=== PATIENT | female | born 1975 | race Caucasian/White ===

== ENCOUNTER 2023-06-21 12:09 | Day surgery (SDC) | payer MEDICARE ==
[2023-06-21] MEDS ORDERED: Decadron 4 MG INJ IV ONE (12:10)
[2023-06-21] MEDS ORDERED: Sodium Chloride 0.9(Preservative Free) 10 ML IJ ONE (12:10)
[2023-06-21 13:24] LABS: HCG URINE TEST NEGATIVE (NEGATIVE)
[2023-06-21] MEDS ORDERED: Lactated Ringers 1,000 ML IV ONE (14:42)
[2023-06-21] MEDS ORDERED: DIPRIVAN 200 MG/20 ML IV ONE (15:11)
[2023-06-21] MEDS ORDERED: Versed 2 MG/2 ML Injection ONE (15:12)
--- NOTE | 2023-06-21 16:33 | XRAY ---
Indication: Right L4-S1 transforaminal SHI. Intraoperative fluoroscopy provided for 57 seconds. 6 digital spot image submitted for interpretation demonstrates posterior needle tips projecting over the expected right L4 and L5 nerve roots. Small amount of contrast injected for needle tip placement. Correlate with intraoperative findings/report.
--- NOTE | 2023-06-21 16:40 | XRAY ---
57 seconds of fluoroscopy was used in surgery for a right L4-S1 transforaminal SHI.
== END 2023-06-21 15:45 | disposition home or self-care (01) ==
LOC: SDC-PAIN 12:09
PROVIDERS: ATTEND Psychiatry & Neurology Pain Medicine
DX: M54.16 Radiculopathy, lumbar region (principal)
CPT/HCPCS: 64483; 64484; 72100; 77003; 81025; J1100; J2250; J2704; Q9966

== ENCOUNTER 2024-04-17 11:51 | Day surgery (SDC) | payer MEDICARE ==
[2024-04-17] MEDS ORDERED: Decadron 4 MG INJ IV ONE (11:52)
[2024-04-17] MEDS ORDERED: Sodium Chloride 0.9(Preservative Free) 10 ML IJ ONE (11:52)
[2024-04-17 12:25] LABS: HCG URINE TEST NEGATIVE (NEGATIVE)
[2024-04-17] MEDS ORDERED: DIPRIVAN 200 MG/20 ML IV ONE (13:56)
[2024-04-17] MEDS ORDERED: Xylocaine-Mpf 2% 5 Ml Vial ONE (13:58)
--- NOTE | 2024-04-17 14:54 | XRAY ---
Indication: Left L3-L5 transforaminal SHI. Intraoperative fluoroscopy provided for 33 seconds. 3 digital spot images submitted for interpretation demonstrates posterior needle tips projecting over expected left L3 and L4 nerve roots. Small amount of contrast injected for needle tip placement. Correlate with intraoperative findings/report.
--- NOTE | 2024-04-17 15:00 | XRAY ---
33 seconds of fluoroscopy was used in surgery for a left L3-L5 transforaminal SHI.
== END 2024-04-17 14:32 | disposition home or self-care (01) ==
LOC: SDC-PAIN 11:51
PROVIDERS: ATTEND Psychiatry & Neurology Pain Medicine
DX: M54.16 Radiculopathy, lumbar region (principal)
CPT/HCPCS: 72100; 77003; 81025; J1100; J2704